=== PATIENT | female | born 1960 | race Caucasian/White ===

== ENCOUNTER → 2019-01-09 | Outpatient (CLI) | payer OTHER ==
--- NOTE | 2019-01-09 16:33 | BD ---
EXAMINATION TYPE: Axial Bone Density DATE OF EXAM: 01/09/2019 COMPARISON: NONE CLINICAL HISTORY: 58-year-old female post menopausal Height: 69.5 Weight: 285 FRAX RISK QUESTIONS: History of Fracture in Adulthood: Y Secondary Osteoporosis: RISK FACTORS HISTORY OF: Postmenopausal woman: MEDICATIONS: Additional Medications: blood pressure Additional History: EXAM MEASUREMENTS: Bone mineral densitometry was performed using the [employer]ience System. Bone mineral density as measured about the Lumbar spine is: ----- L1-L4(G/cm2): 1.346 T Score Values are as follows: ----- L2: 1.5 ----- L3: 1.1 ----- L4: 1.0 ----- L1-L4: 1.4 Bone mineral density about the R hip (g/cm2): 0.977 Bone mineral density about the L hip (g/cm2): 0.919 T Score values are as follows: -----R Neck: -0.4 -----L Neck: -0.9 -----R Total: 0.9 -----L Total: 0.0 IMPRESSION: Normal (Values between +1 and -1 indicate normal bone mass). However, note that measurements border o n osteopenia at the left femoral neck. Consider repeating this study in 5 years or sooner if there is some new clinical indication. NOTE: T-SCORE=SD OF THE YOUNG ADULT MEAN.
--- NOTE | 2019-01-22 14:28 | MM ---
Reason for exam: screening (asymptomatic). Last mammogram was performed 2 years and 1 month ago. History: Patient is postmenopausal and is nulliparous. Physical Findings: A clinical breast exam by your physician is recommended on an annual basis and results should be correlated with mammographic findings. MG Screening Mammo w CAD Bilateral CC and MLO view(s) were taken. Prior study comparison: December 06, 2016, mammogram. There are scattered fibroglandular densities. No suspicious abnormality. No significant changes when compared with prior studies. ASSESSMENT: Negative, BI-RAD 1 RECOMMENDATION: Routine screening mammogram of both breasts in 1 year.
== END | disposition home or self-care (01) ==
LOC: RADMAMWWP 08:01
PROVIDERS: ATTEND Family Medicine
DX: Z12.31 Encounter for screening mammogram for malignant neoplasm of breast (principal); Z78.0 Asymptomatic menopausal state
CPT/HCPCS: 77067; 77080

== ENCOUNTER → 2022-04-07 | Outpatient (CLI) | payer OTHER ==
--- NOTE | 2022-04-08 08:26 | MM ---
Reason for Exam: Screening (asymptomatic). Last mammogram was performed 3 year(s) and 3 month(s) ago. Patient History: Menarche at age 11. Patient has no children. Postmenopausal. Risk Values: Aleida 5 year model risk: 1.7%. NCI Lifetime model risk: 7.4%. Prior Study Comparison: 12/06/2016 Screening Mammogram, Unknown. 01/09/2019 Bilateral Screening Mammogram, [facility]. Tissue Density: The breast tissue is almost entirely fat. Findings: Analyzed By CAD. There is no suspicious group of microcalcifications or new suspicious mass in either breast. Overall Assessment: Negative, BI-RAD 1 Management: Screening Mammogram of both breasts in 1 year. A clinical breast exam by your physician is recommended on an annual basis and results should be correlated with mammographic findings. Electronically signed and approved by: Dg Andrews DO
== END | disposition home or self-care (01) ==
LOC: RADMAMWWP 11:01
PROVIDERS: ATTEND Family Medicine
DX: Z12.31 Encounter for screening mammogram for malignant neoplasm of breast (principal); Z78.0 Asymptomatic menopausal state
CPT/HCPCS: 77067

== ENCOUNTER → 2023-12-27 | Outpatient (CLI) | payer MEDICARE, OTHER ==
--- NOTE | 2023-12-27 13:22 | BD ---
EXAMINATION TYPE: Axial Bone Density DATE OF EXAM: 12/27/2023 CLINICAL HISTORY: 63 years old Female. ICD-10 CODE: N95.1 MENOPAUSAL AND FEMALE CLIM Height: 70" Weight: 323lbs FRAX RISK QUESTIONS: Alcohol (3 or more units per day): No Family History (Parent hip fracture): No Glucocorticoids (More than 3mos): No (Ex: prednisone, prednisolone, methylprednisolone, dexamethasone, and hydrocortisone). History of Fracture in Adulthood: No Secondary Osteoporosis: 1. Type 1 Diabetes: No 2. Hyperthyroidism: No 3. Menopause before 45: 53 4. Malnutrition: No 5. Chronic liver disease: No Rheumatoid Arthritis: No Current Tobacco Use: No RISK FACTORS HISTORY OF: Hip Fracture (Right/Left): No Spine Fracture: No History of Wrist Fracture: No Surgery to Spine/Hip(right/left)/Wrist (right/left): No MEDICATIONS: Thyroid Medications: No Osteoporosis Medications: No EXAM MEASUREMENTS: Bone mineral densitometry was performed using the [employer] System. Bone mineral density as measured about the Lumbar spine is: ----- L1-L4(G/cm2): 1.378 T Score Values are as follows: ----- L1: 0.9 ----- L2: 1.6 ----- L3: 1.6 ----- L4: 2.0 ----- L1-L4: 1.6 Z Score Values are as follows: ----- L1: 1.3 ----- L2: 2.1 ----- L3: 2.1 ----- L4: 2.5 ----- L1-L4: 2.1 Bone mineral density has: increased 2.4% since study of: 01/09/2019 Bone mineral density about the R hip (g/cm2): 1.104 Bone mineral density about the L hip (g/cm2): 0.998 T Score values are as follows: -----R Neck: -0.5 -----L Neck: -1.0 -----R Total: 0.8 -----L Total: -0.1 Z Score values are as follows: -----R Neck: 0.2 -----L Neck: -0.3 -----R Total: 1.2 -----L Total: 0.3 Bone mineral density has: decreased -1.3% since study of: 01/09/2019 Bone mineral density about the R Wrist (g/cm2): Bone mineral density about the L Wrist (g/cm2): T Score values are as follows: -----Dist. R+U: -----Prox. R+U: -----Radius total: Z Score values are as follows: -----Dist. R+U: -----Prox. R+U: -----Radius total: Bone mineral density has: % since study of: FRAX%s: The graph provided illustrates a % chance for a major osteoporotic fx and a % chance for the hips probability for fx in 10 years time. IMPRESSION: Normal (Values between +1 and -1 indicate normal bone mass). Consider repeating this study in 5 year s or sooner if there is some new clinical indication. NOTE: T-SCORE=SD OF THE YOUNG ADULT MEAN.
--- NOTE | 2023-12-28 20:04 | MM ---
Reason for Exam: Screening (asymptomatic). Last mammogram was performed 1 year(s) and 8 month(s) ago. Patient History: Menarche at age 11. Patient has no children. Postmenopausal. Risk Values: Aleida 5 year model risk: 1.8%. NCI Lifetime model risk: 6.9%. Prior Study Comparison: 12/06/2016 Screening Mammogram, Unknown. 01/09/2019 Bilateral Screening Mammogram, [facility]. 04/07/2022 Bilateral MG screening mammo w CAD, [facility]. Tissue Density: There are scattered areas of fibroglandular density. Findings: Analyzed By CAD. Asymmetric density superior left breast is more defined. This may represent superimposition shadow but further evaluation is recommended. Otherwise, no significant change. Overall Assessment: Incomplete: need additional imaging evaluation, BI-RAD 0 Management: Special View Mammogram of the left breast. Additional views to include spot 3-D CC, spot 3-D MLO, and 3-D lateral views. [facility] will attempt to contact patient to return for supplemental views and ultrasound if indicated. Electronically signed and approved by: Cornelio Conde M.D. Radiologist
== END | disposition home or self-care (01) ==
LOC: RADMAMWWP 10:07
PROVIDERS: ATTEND Family Medicine
DX: Z12.31 Encounter for screening mammogram for malignant neoplasm of breast (principal); M85.852 Other specified disorders of bone density and structure, left thigh; Z78.0 Asymptomatic menopausal state
CPT/HCPCS: 77067; 77080

== ENCOUNTER → 2024-01-23 | Outpatient (CLI) | payer MEDICARE, OTHER ==
--- NOTE | 2024-01-23 10:30 | MM ---
Reason for Exam: Additional evaluation requested from prior study. Last screening mammogram was performed less than 1 month ago. Patient History: Menarche at age 11. Patient has no children. Postmenopausal. Risk Values: Aleida 5 year model risk: 1.8%. NCI Lifetime model risk: 6.9%. Prior Study Comparison: 01/09/2019 Bilateral Screening Mammogram, [facility]. 04/07/2022 Bilateral MG screening mammo w CAD, [facility]. 12/27/2023 Bilateral MG screening mammo w CAD, [facility]. Tissue Density: Left: There are scattered areas of fibroglandular density. Findings: Analyzed By CAD. The pattern is symmetrical. Impression no persistent suspicious focal asymmetry with spiculated or lobular mass is evident. The area disperses normally. No suspicious groups of microcalcifications, spiculated or lobular masses, architectural distortion or other secondary signs of malignancy are mammographically apparent. Overall Assessment: Benign, BI-RAD 2 Management: Screening Mammogram of both breasts in 1 year. A negative mammogram report should not preclude additional follow up of suspicious palpable abnormalities. Patient should continue monthly self breast exam. A clinical breast exam by your physician is recommended on an annual basis and results should be correlated with mammographic findings. Note on Aleida scores and lifetime risk: 1. A Aleida score greater than 3% is considered moderate risk. If this is the case, consider specialist referral to assess eligibility for a risk reducing agent. 2. If overall lifetime risk for the development of breast cancer is 20% or higher, the patient may qualify for future screening with alternating mammogram and breast MRI. Electronically signed and approved by: Dilshad Preston D.O. Radiologis
== END | disposition home or self-care (01) ==
LOC: RADMAMWWP 09:53
PROVIDERS: ATTEND Family Medicine
DX: R92.322 Mammographic fibroglandular density, left breast (principal); Z78.0 Asymptomatic menopausal state
CPT/HCPCS: 77065; G0279; 77061